=== PATIENT | female | born 1980 | race African-American/Black ===

== ENCOUNTER 2019-03-20 07:32 | Emergency (ER) | payer OTHER | END 2019-03-20 09:27 | disposition home or self-care (01) | LOC: JER 07:32 ==

== ENCOUNTER 2019-05-12 07:18 | Emergency (ER) | payer OTHER ==
[2019-05-12] MEDS ORDERED: KETOROLAC TROMETHAMINE 60 MG/2 ML VIAL IM ONE (07:29)
[2019-05-12 07:30] VITALS: BP 122/74; PULSE 71; TEMP 98.4; BMI 25.8
[2019-05-12] MEDS ORDERED: KETOROLAC TROMETHAMINE 60 MG/2 ML VIAL ONE (07:51)
--- NOTE | 2019-05-12 07:56 | PDOC ---
History of Present Illness - General Chief Complaint: Pain, Acute Stated Complaint: Pain Time Seen by Provider: 05/12/19 07:24 History Source: Patient Exam Limitations: No Limitations - History of Present Illness Initial Comments: 05/12/19 07:40 38 y/o female presents to ED with complaints of left arm pain upon awakening this morning with tingling to her fingers. Patient denies injury to area, swelling to the arm but states that have right neck pain approximate one week prior. Patient denies weakness, radiation to chest or back, difficulty breathing , or rash area. Timing/Duration: 4-6 hours Severity: moderate Modifying Factors: improves with: other Associated Symptoms: reports: denies symptoms Past History - Travel Close contact w/someone who was outside of country & ill: No - Past Medical History Allergies/Adverse Reactions: Allergies Allergy/AdvReac Type Severity Reaction Status Date / Time No Known Allergies Allergy Verified 05/12/19 07:30 Home Medications: Ambulatory Orders NK [No Known Home Medication] 05/12/19 COPD: No - Suicide/Smoking/Psychosocial Hx Smoking History: Never smoked Have you smoked in the past 12 months: No Hx Alcohol Use: No Drug/Substance Use Hx: No Substance Use Type: None Patient Lives Alone: No Lives with/in: spouse/SO Review of Systems - Review of Systems Able to Perform ROS?: Yes Constitutional: No: Symptoms Reported HEENTM: No: Symptoms Reported Respiratory: No: Symptoms reported Cardiac (ROS): No: Symptoms Reported ABD/GI: No: Symptoms Reported : No: Symptoms Reported Musculoskeletal: Yes: Muscle Pain Integumentary: No: Symptoms Reported Neurological: Yes: Tingling Endocrine: No: Symptoms Reported Hematologic/Lymphatic: No: Symptoms Reported *Physical Exam - Vital Signs Last Vital Signs Temp Pulse Resp BP Pulse Ox 98.4 F 71 16 122/74 100 05/12/19 07:28 05/12/19 07:28 05/12/19 07:28 05/12/19 07:28 05/12/19 07:28 - Physical Exam General Appearance: Yes: Nourished, Appropriately Dressed. No: Apparent Distress HEENT: positive: EOMI, CUAUHTEMOC, Pharynx Normal Neck: positive: Normal Thyroid Respiratory/Chest: positive: Lungs Clear, Normal Breath Sounds. negative: Respiratory Distress, Accessory Muscle Use Cardiovascular: positive: Regular Rhythm, Regular Rate. negative: Murmur Gastrointestinal/Abdominal: positive: Soft Extremity: positive: Normal Inspection, Normal Range of Motion, Tender. negative: Swelling Integumentary: positive: Normal Color, Warm, Moist Neurologic: positive: Motor Strength 5/5 (left hand grasp and shoulder grasp) Medical Decision Making - Medical Decision Making 05/12/19 08:01 Chief complaint: left arm aching with tingling to left 1-3rd digit intermittently since awakening this am Exam: vss, no reproducible pain Plan: Ekg and toradol *DC/Admit/Observation/Transfer Diagnosis at time of Disposition: Radicular pain in left arm - Discharge Dispostion Disposition: HOME Condition at time of disposition: Good - Referrals - Patient Instructions Printed Discharge Instructions: DI for Cervical Radiculopathy Additional Instructions: Please take Motrin 600 mg every 8 hours as recommended for the next 72 hours then as needed thereafter. May massage area and provide small range of motion exercises to alleviate inflammation. If symptoms do not improve over the next week consider follow up with her PCP and/or imaging. - Post Discharge Activity
--- NOTE | 2019-05-12 17:29 | EKG ---
Test Reason : Blood Pressure : / mmHG Vent. Rate : 074 BPM Atrial Rate : 074 BPM P-R Int : 218 ms QRS Dur : 090 ms QT Int : 396 ms P-R-T Axes : 073 073 034 degrees QTc Int : 439 ms SINUS RHYTHM WITH 1ST DEGREE A-V BLOCK POSSIBLE LEFT ATRIAL ENLARGEMENT NONSPECIFIC T WAVE ABNORMALITY ABNORMAL ECG NO PREVIOUS ECGS AVAILABLE Confirmed by TIANNA SOARES MD ([id number]) on 05/12/2019 5:28:48 PM Referred By: Confirmed By:TIANNA SOARES MD
== END 2019-05-12 08:18 | disposition home or self-care (01) ==
LOC: JER 07:18
PROC: 3E0233Z Introduction of Anti-inflammatory into Muscle, Percutaneous Approach (ICD-10-PCS; principal; 2019-05-12)
DX: M54.12 Radiculopathy, cervical region (principal)
CPT/HCPCS: 93005; 93010; 99282-25

== ENCOUNTER 2019-10-11 16:23 | Emergency (ER) | payer OTHER ==
[2019-10-11 17:05] VITALS: BMI 23.3
[2019-10-11] MEDS ORDERED: FAMOTIDINE 20 MG/50 ML IVPB 20 MG/50 ML MG IVPB ONE (18:41)
[2019-10-11] MEDS ORDERED: ONDANSETRON 4 MG/2 ML VIAL IVPUSH ONE (18:41)
[2019-10-11] MEDS ORDERED: SODIUM CHLORIDE 1,000 ML IV STA (18:41)
[2019-10-11] MEDS ORDERED: ONDANSETRON 4 MG/2 ML VIAL ONE (19:01)
--- NOTE | 2019-10-11 19:08 | PDOC ---
Documentation entered by Nicci Shelby SCRIBE, acting as scribe for Ramon Peters MD. Ramon Peters MD: This documentation has been prepared by the Afsaneh wolf Xhesika, SCRIBE, under my direction and personally reviewed by me in its entirety. I confirm that the documentation accurately reflects all work, treatment, procedures, and medical decision making performed by me. History of Present Illness - General Chief Complaint: Nausea/Vomiting Stated Complaint: DIZZY Time Seen by Provider: 10/11/19 17:48 History Source: Patient Exam Limitations: No Limitations - History of Present Illness Initial Comments: 10/11/19 18:47 The patient is a 30 year old female, , with no PMH who presents to the ED with nausea and vomiting since this morning. She reports her symptoms began 1 hour after taking a left over azithromycin pill for a runny nose and cough that started last night. She reports innumberable episodes of NBNB emesis and 4 episodes of non bloody diarrhea. She denies abdominal pain. Patient notes she had fried food, rice, ribs and [employer] yesterday. 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 Pt reports she smoked marijuana last week (one blunt). Patient notes her LMP was last week, denies any chance she is . The patient denies chest pain, shortness of breath, headache, dizziness, focal weakness/numbness. Denies fever, chills, cough, diarrhea and constipation. Denies dysuria, frequency, urgency and hematuria. Allergies: NKDA Past History - Past Medical History Allergies/Adverse Reactions: Allergies Allergy/AdvReac Type Severity Reaction Status Date / Time No Known Allergies Allergy Verified 10/11/19 17:03 Home Medications: Ambulatory Orders Ondansetron HCl [Zofran] 4 mg PO BID #10 tablet 10/11/19 COPD: No - Psycho Social/Smoking Cessation Hx Smoking History: Never smoked Have you smoked in the past 12 months: No Information on smoking cessation initiated: No Hx Alcohol Use: No Drug/Substance Use Hx: No Substance Use Type: None Review of Systems - Review of Systems Able to Perform ROS?: Yes Comments:: 10/11/19 18:48 GENERAL/CONSTITUTIONAL: No fever or chills. No weakness. HEAD, EYES, EARS, NOSE AND THROAT: No change in vision. No ear pain or discharge. No sore throat. CARDIOVASCULAR: No chest pain, no shortness of breath, no loss of consciousness RESPIRATORY: No cough, wheezing, or hemoptysis. GASTROINTESTINAL: + nausea, + vomiting. No diarrhea or constipation. GENITOURINARY: No dysuria, frequency, or change in urination. MUSCULOSKELETAL: No joint or muscle swelling or pain. No neck or back pain. SKIN: No rash NEUROLOGIC: No vertigo, no change in strength/sensation. ENDOCRINE: No increased thirst. No abnormal weight change. HEMATOLOGIC/LYMPHATIC: No anemia, easy bleeding, or history of blood clots. ALLERGIC/IMMUNOLOGIC: No hives or skin allergy. *Physical Exam - Vital Signs Last Vital Signs Temp Pulse Resp BP Pulse Ox 98 F 64 26 H 129/54 L 97 10/11/19 17:03 10/11/19 17:03 10/11/19 17:03 10/11/19 17:03 10/11/19 17:03 - Physical Exam 10/11/19 18:48 GENERAL: Awake, alert, and fully oriented, in no acute distress. EYES: PERRLA, EOMI, sclera anicteric, conjunctiva clear ENT: ANares patent, oropharynx clear without exudates. Moist mucosa NECK: Nontender, no stepoffs, Normal ROM, supple, no lymphadenopathy, JVD, or masses LUNGS: Breath sounds equal, clear to auscultation bilaterally. No wheezes, and no crackles HEART: Regular rate and rhythm, normal S1 and S2, no murmurs, rubs or gallops ABDOMEN: Soft, mild LUQ ttp, no other ttp in any other quadrants, normoactive bowel sounds. No guarding, no rebound. No masses EXTREMITIES: Normal range of motion, no edema. No clubbing or cyanosis. No cords, erythema, or tenderness NEUROLOGICAL: Cranial nerves II through XII intact. 5/5 strength and sensation in all extremities, Normal speech, normal gait, normal cerebellar function SKIN: Warm, Dry, normal turgor, no rashes or lesions noted. ED Treatment Course - LABORATORY CBC & Chemistry Diagram: 10/11/19 19:00 10/11/19 19:00 Medical Decision Making - Medical Decision Making 10/11/19 19:06 38-year-old female with no significant past medical history who presents to the emergency department with innumerable episodes of vomiting since this morning as well as diarrhea. Vitals on my evaluation within normal limits. With mild left upper quadrant tenderness palpation, but no other abdominal tenderness palpation. Most likely viral gastroenteritis, however will obtain labs to evaluate for pancreatitis as well will also obtain test Plan to treat symptoms with fluids and antiemetics. Case signed out to Dr. White for reassessment and further management. Discharge - Discharge Information Problems reviewed: Yes Clinical Impression/Diagnosis: Nausea & vomiting, Gastroenteritis Disposition: HOME - Additional Discharge Information Prescriptions: Ondansetron HCl [Zofran] 4 mg PO BID #10 tablet - Follow up/Referral - Patient Discharge Instructions Patient Printed Discharge Instructions: Viral Gastroenteritis - Post Discharge Activity
[2019-10-11 19:22] LABS: BASO % 0.6 % (0-2.0); EOS % 0.1 % (0-4.5); HEMATOCRIT 37.9 % (32.4-45.2); HEMOGLOBIN 12.6 GM/dL (10.7-15.3); LYMPH % 16.3 % (8-40); MCH 30.8 pg (25.7-33.7); MCHC 33.1 g/dl (32.0-36.0); MEAN CELL VOLUME 92.8 fl (80-96); MEAN PLT VOLUME 9.8 fl (7.5-11.1); MONO % 4.5 % (3.8-10.2); NEUT % 78.5 % (42.8-82.8); PLATELET COUNT 201 K/MM3 (134-434); RBC 4.08 M/mm3 (3.60-5.2); RDW 14.5 % (11.6-15.6); WHITE BLOOD COUNT 6.1 K/mm3 (4.0-10.0)
[2019-10-11] MEDS ORDERED: SODIUM CHLORIDE 0.9% 500 ML INFUS.BAG IV ONE (19:25)
[2019-10-11 19:42] LABS: ALBUMIN 4.4 g/dl (3.4-5.0); BILIRUBIN,TOTAL 0.6 mg/dL (0.2-1); BLOOD UREA NITROGEN 7.9 mg/dL (7-18); CALCIUM 9.6 mg/dL (8.5-10.1); CREATININE 0.9 mg/dL (0.55-1.3); MAGNESIUM 1.8 mg/dL (1.8-2.4); POTASSIUM 3.8 mmol/L (3.5-5.1); TOT PROT 8.2 g/dl (6.4-8.2)
--- NOTE | 2019-10-11 19:43 | PDOC ---
Attending Attestation - Resident Resident Name: Jennifer Grove - ED Attending Attestation I have performed the following: I have examined & evaluated the patient, The case was reviewed & discussed with the resident, I agree w/resident's findings & plan
--- NOTE | 2019-10-11 19:44 | PDOC ---
*Physical Exam - Vital Signs Last Vital Signs Temp Pulse Resp BP Pulse Ox 98 F 64 26 H 129/54 L 97 10/11/19 17:03 10/11/19 17:03 10/11/19 17:03 10/11/19 17:03 10/11/19 17:03 ED Treatment Course - LABORATORY CBC & Chemistry Diagram: 10/11/19 19:00 10/11/19 19:00 - ADDITIONAL ORDERS Additional order review: Laboratory Results 10/11/19 10/11/19 19:00 19:00 Sodium 137 Potassium 3.8 Chloride 108 H Carbon Dioxide 18 L Anion Gap 12 BUN 7.9 Creatinine 0.9 Est GFR (CKD-EPI)AfAm 94.01 Est GFR (CKD-EPI)NonAf 81.11 Random Glucose 135 H Calcium 9.6 Magnesium 1.8 Total Bilirubin 0.6 AST 19 ALT 20 Alkaline Phosphatase 73 Total Protein 8.2 Albumin 4.4 Lipase 62 L 10/11/19 19:00 RBC 4.08 MCV 92.8 MCHC 33.1 RDW 14.5 MPV 9.8 Neutrophils % 78.5 D Lymphocytes % 16.3 D Monocytes % 4.5 Eosinophils % 0.1 D Basophils % 0.6 - Medications Given in the ED: ED Medications Discontinued Medications Generic Name Dose Route Start Last Admin Trade Name Freq PRN Reason Stop Dose Admin Famotidine/Sodium Chloride 20 mg in 50 mls @ 100 mls/hr 10/11/19 18:41 19:22 Pepcid 20 Mg Premixed Ivpb - IVPB 10/11/19 19:10 100 mls/hr ONCE ONE Administration Sodium Chloride 1,000 mls @ 1,000 mls/hr 10/11/19 18:41 10/11/19 19:07 Normal Saline - IV 10/11/19 19:40 1,000 mls/hr ASDIR STA Administration Ondansetron HCl 4 mg 10/11/19 18:41 10/11/19 19:07 Zofran Injection IVPUSH 10/11/19 18:42 4 mg ONCE ONE Administration Medical Decision Making - Medical Decision Making 10/11/19 20:02 Pt just vomited and she has RUQ pain; bilious vomit and although she has normal WBC and normal LFTs, I will get a sono of her RUQ. She will get another L saline and morphine 2mg 12/21/19 21:21 Pt received morphine as well as NSS We are awaiting her RUQ sono 10/11/19 21:32 Patient Name: HERMELINDA HUFF THIS IS A PRELIMINARY REPORT FROM [facility] DATE OF SERVICE: 2019-10-11 20:21:53 IMAGES: 59 EXAM: Right upper quadrant ultrasound History: 38-year-old female, evaluate for cholecystitis Comparison: No comparison exam is available. Technique: Multiple transverse and longitudinal images of the right upper quadrant, IVC are obtained. Findings: Liver: Homogeneous echotexture. No biliary ductal dilatation. Normal directional hepatic flow. Gallbladder: No stones. No sludging. No wall thickening. No pericholecystic fluid. No sonographic Augustine sign. Extra hepatic bile duct caliber: Within normal limits measuring 4 mm. Pancreatic head and body: Not well evaluated on ultrasound. Right kidney: No hydronephrosis. Fluid: None. IVC: Visualized portions unremarkable. IMPRESSION: Unremarkable right upper quadrant ultrasound 10/11/19 21:39 Pt is feeling better and she is ready to go home. Discharge - Discharge Information Problems reviewed: Yes Clinical Impression/Diagnosis: Nausea & vomiting, Gastroenteritis Disposition: HOME - Admission No - Follow up/Referral - Patient Discharge Instructions Patient Printed Discharge Instructions: Viral Gastroenteritis - Post Discharge Activity
[2019-10-11] MEDS ORDERED: morphine CARPU-JECT 2 MG/1 ML DISP.SYRIN IVPUSH ONE (19:52)
[2019-10-11] MEDS ORDERED: MORPHINE SULFATE 2 MG/ML VIAL ONE (20:01)
[2019-10-11 22:10] VITALS: BP 127/74; PULSE 57; TEMP 98.9
== END 2019-10-11 22:08 | disposition home or self-care (01) ==
LOC: JER 16:23
PROC: 3E033GC Introduction of Other Therapeutic Substance into Peripheral Vein, Percutaneous Approach (ICD-10-PCS; principal; 2019-10-11)
PROC: 3E033GC Introduction of Other Therapeutic Substance into Peripheral Vein, Percutaneous Approach (ICD-10-PCS; 2019-10-11)
PROC: 3E033NZ Introduction of Analgesics, Hypnotics, Sedatives into Peripheral Vein, Percutaneous Approach (ICD-10-PCS; 2019-10-11)
DX: K52.9 Noninfective gastroenteritis and colitis, unspecified (principal)
CPT/HCPCS: 36415; 76705-TC; 80053; 83690; 83735; 84703; 85025; 99282-25; J7030

== ENCOUNTER 2019-11-05 02:03 | Emergency (ER) | payer OTHER ==
[2019-11-05 02:35] VITALS: BP 111/68; PULSE 66; TEMP 98; BMI 22.4
--- NOTE | 2019-11-05 04:00 | PDOC ---
Attending Attestation - Resident Resident Name: EribertoChristie - ED Attending Attestation I have performed the following: I have examined & evaluated the patient, The case was reviewed & discussed with the resident, I agree w/resident's findings & plan - HPI HPI: 11/05/19 04:54 see resident hpi - Physicial Exam PE: 11/05/19 04:54 agree with resident exam - Medical Decision Making 11/05/19 04:39-year-old female with bilateral upper back pain as well as pain to both upper extremities Patient given steroids and Toradol in the emergency department Patient advised to stay for imaging, specifically an MRI of the cervical and thoracic spine which she is refusing She will be leaving AMA, patient will be given orthopedic follow-up
[2019-11-05] MEDS ORDERED: predniSONE 20 MG TABLET (UD) PO ONE (04:25)
[2019-11-05] MEDS ORDERED: KETOROLAC TROMETHAMINE 60 MG/2 ML VIAL IM ONE (04:25)
--- NOTE | 2019-11-05 04:25 | PDOC ---
History of Present Illness - General Chief Complaint: Back Pain Stated Complaint: PAIN, NECK/ RT SHOULDER Time Seen by Provider: 11/05/19 03:59 - History of Present Illness Initial Comments: Lucio Stout is a 39yo woman with no medical history who presents reporting right shoulder pain with shooting pain from her hands up her arms bilaterally. She first noticed the shoulder/neck pain on Sunday morning, and the pain was initially bilateral. Throughout the day it localized to the right shoulder. She reports increased pain with extension of her arm at the shoulder. Yesterday, she also noticed that she had severe pain that shoots up both arms whenever she puts pressure on her fingertips or palms. She denies any weakness, numbness, or tingling in her arms or hands. She denies ever having any similar symptoms previously (though per chart review was seen for LUE pain w/ finger tingling in fall). She is not aware of any trauma, unusual lifting, or other injury prior to the pain starting. Past History - Past Medical History Allergies/Adverse Reactions: Allergies Allergy/AdvReac Type Severity Reaction Status Date / Time No Known Allergies Allergy Verified 11/05/19 02:33 Home Medications: Ambulatory Orders Ondansetron HCl [Zofran] 4 mg PO BID #10 tablet 10/11/19 Ibuprofen 600 mg PO Q8H PRN #30 tablet 11/05/19 Lidocaine 5% Patch [Lidoderm -] 1 patch TP DAILY PRN #7 patch 11/05/19 Prednisone [Prednisone 50 MG TABLETS] 50 mg PO DAILY #5 tablet 11/05/19 COPD: No - Psycho Social/Smoking Cessation Hx Smoking History: Never smoked Have you smoked in the past 12 months: No Information on smoking cessation initiated: No Hx Alcohol Use: Yes Drug/Substance Use Hx: No Substance Use Type: None Review of Systems - Review of Systems Comments:: General: No fevers, no chills, no weight or appetite change, no malaise HEENT: No changes in vision, no changes in hearing, no congestion, no sore throat CV: No chest pain, no palpitations, no LE edema Pulm: No SOB, no cough, no wheezing GI: No nausea or vomiting, no change in bowel habits, no melena : No frequency, no urgency, no dysuria Musc: See HPI Skin: No rash, no lesions, no erythema Endo: No excessive thirst, no heat/cold intolerance Heme: No unusual bruising or bleeding, no swollen glands Neuro: No syncope, no numbness/tingling, no focal weakness Vasc: No claudication Psych: No recent change in mood, no SI or HI *Physical Exam - Vital Signs Last Vital Signs Temp Pulse Resp BP Pulse Ox 98 F 66 17 111/68 100 11/05/19 02:28 11/05/19 02:28 11/05/19 02:28 11/05/19 02:28 11/05/19 02:28 - Physical Exam General: Comfortable, no acute distress HEENT: PERRL, EOMI, MMM, voice normal, normal neck ROM, no LAD Cards: RRR, no murmur appreciated Pulm: Comfortable on room air, clear to auscultation bilaterally Abd: Soft, nontender, nondistended Ext: Atraumatic. No LE edema. ROM intact. Strength 5/5 and equal bilaterally. TTP over superior lateral right shoulder; reproducible RUE pain with arm extension. Tenderness to palpation over both palms. BUE neurovascularly intact; palable radial pulses and able to make thumbs up, OK sign, cross fingers. Negative tinel's sign Skin: Normal color, no rashes or lesions Neuro: A&Ox3, CN grossly intact, normal speech, motor/sensory grossly intact and symmetric Psych: Mood appropriate to situation Medical Decision Making - Medical Decision Making 11/05/19 04:25 Lucio Stout is a 39yo woman with no medical history who presents reporting right shoulder pain that worsens with movement as well as b/l pain shooting up her arms with touch to her b/l palms and fingers. She denies any trauma, heavy lifting, or other injury or strain. - Shoulder pain that worsens with palpation and arm movement most likely musculoskeletal. Pain shooting up her arms unclear, possibly carpal tunnel but no preproducible symptoms appreciated on exam - Toradol, prednisone, lidocaine patch for symptoms 11/05/19 05:22 - Feels significantly improved, now able to move RUE in full ROM at shoulder - Continued shooting pain up b/l arms - Pt declines to stay in the ED for MRI and additional evaluation. Will leave AMA Discussed with Dr Mickey Wei PGY2 Discharge - Discharge Information Problems reviewed: Yes Clinical Impression/Diagnosis: Shooting pain Right shoulder pain Qualifiers: Chronicity: acute Qualified Code(s): M25.511 - Pain in right shoulder Condition: Stable Disposition: AGAINST MEDICAL ADVICE - Admission No - Additional Discharge Information Prescriptions: Ibuprofen 600 mg PO Q8H PRN #30 tablet PRN Reason: Pain Lidocaine 5% Patch [Lidoderm -] 1 patch TP DAILY PRN #7 patch PRN Reason: Pain Prednisone [Prednisone 50 MG TABLETS] 50 mg PO DAILY #5 tablet - Follow up/Referral Referrals: Christ Prado MD [Staff Physician] - David Charles DO [Staff Physician] - - Patient Discharge Instructions Patient Printed Discharge Instructions: DI for Carpal Tunnel Syndrome, DI for Shoulder Pain Additional Instructions: Discharge Instructions: You were seen in the emergency department for shoulder and arm pain. Your symptoms improved with medications, but you declined to stay for an MRI to make sure there is no nerve injury. Home Care and Follow Up: - You have been prescribed an anti-inflammatory medication called prednisone. This should be taken once daily for 5 days - You have been prescribed a pain medication, iburpofen, that may be taken every 6-8 hours as needed for pain - You may also use [id number] acetaminophen (Tylenol) every 6-8 hours if needed for continued pain. - It is strongly recommended that you take ibuprofen with food to help prevent stomach irritation. - You may buy a numbing patch that contains lidocaine (the patch is 4% lidocaine ) that can be placed over the areas of greatest pain. The lidocaine patch may be placed for 12 hours then removed for 12 hours. - Try using an ice pack for 20 minutes every hour or a heating pad for additional pain control. These should NOT be used over the lidocaine patch, but you may place them over the areas of pain while the patch is off. - Do not stop moving around. As much as you can tolerate, continue to do light exercise and stretching exercises. Increase your activity level as much as you can tolerate daily. - If your pain does not improve over the next week, you have been referred to orthopedics for follow up. - Seek immediate medical care if you have significant worsening of your symptoms , you are unable to move your shoulder, you have severe pain not controlled by medications, or you have any other medical emergency. - Post Discharge Activity
[2019-11-05] MEDS ORDERED: LIDOCAINE 5% TOPICAL PATCH TP ONE (04:30)
[2019-11-05] MEDS ORDERED: predniSONE 20 MG TABLET (UD) ONE (04:38)
[2019-11-05] MEDS ORDERED: LIDOCAINE 5% TOPICAL PATCH ONE (04:38)
[2019-11-05] MEDS ORDERED: KETOROLAC TROMETHAMINE 60 MG/2 ML VIAL ONE (04:38)
== END 2019-11-05 05:47 | disposition left against medical advice (07) ==
LOC: JER 02:03
PROC: 3E0233Z Introduction of Anti-inflammatory into Muscle, Percutaneous Approach (ICD-10-PCS; principal; 2019-11-05)
DX: M25.511 Pain in right shoulder (principal)
CPT/HCPCS: 99282-25

== ENCOUNTER 2021-03-10 20:51 | Emergency (ER) | payer OTHER ==
[2021-03-10 21:09] VITALS: BP 137/75; PULSE 54; TEMP 98.5; BMI 21.6
[2021-03-10] MEDS ORDERED: LACTATED RINGERS SOLUTION 1000 ML INFUS.BAG IV ONE (22:10)
[2021-03-10] MEDS ORDERED: ACETAMINOPHEN 1000 MG/100 ML VIAL (NON FORMULARY) IVPB ONE (22:10)
[2021-03-10] MEDS ORDERED: FAMOTIDINE 20 MG/50 ML IVPB 20 MG/50 ML MG IVPB ONE ×2 (22:10→22:34)
[2021-03-10] MEDS ORDERED: ONDANSETRON 4 MG/2 ML VIAL IVPUSH ONE (22:10)
[2021-03-10] MEDS ORDERED: ACETAMINOPHEN INJECTION 100 ML IVPB ONE (22:33)
[2021-03-10] MEDS ORDERED: ONDANSETRON 4 MG/2 ML VIAL ONE (22:33)
[2021-03-10] MEDS ORDERED: LACTATED RINGERS SOLUTION 1,000 ML/1,000 ML INFUS.BAG IV STA (22:36)
[2021-03-10 23:46] LABS: BASO % 0.4 % (0-2.0); HEMATOCRIT 39.5 % (32.4-45.2); HEMOGLOBIN 12.9 GM/dL (10.7-15.3); LYMPH % 12.9 % (8-40); MCH 31.4 pg (25.7-33.7); MCHC 32.7 g/dl (32.0-36.0); MEAN PLT VOLUME 9.3 fl (7.5-11.1); MONO % 4.5 % (3.8-10.2); NEUT % 82.2 % (42.8-82.8); PLATELET COUNT 190 K/MM3 (134-434); RBC 4.11 M/mm3 (3.60-5.2); RDW 15.1 % (11.6-15.6); WHITE BLOOD COUNT 6.3 K/mm3 (4.0-10.0)
[2021-03-10] MEDS ORDERED: MAG HYDROX/AL HYDROX/SIMETH 30 ML UNIT-DOSE CUP PO ONE (23:59)
[2021-03-11] MEDS ORDERED: LIDOCAINE VISCOUS 2% ORAL/TOP 20 ML UNIT-DOSE CUP MM ONE ×2 (00:01→04:43)
[2021-03-11] MEDS ORDERED: LIDOCAINE VISCOUS 2% ORAL/TOP 20 ML UNIT-DOSE CUP ONE ×3 (00:03→04:53)
[2021-03-11] MEDS ORDERED: MAG HYDROX/AL HYDROX/SIMETH 30 ML UNIT-DOSE CUP ONE ×4 (00:04→04:53)
[2021-03-11 00:13] LABS: CHLORIDE 105 mmol/L (98-107); SODIUM 138 mmol/L (136-145)
[2021-03-11 00:15] LABS: CALCIUM 9.1 mg/dL (8.5-10.1)
[2021-03-11 00:16] LABS: ALBUMIN 4.3 g/dl (3.4-5.0); ANION GAP 13 MMOL/L (8-16); BLOOD UREA NITROGEN 7.6 mg/dL (7-18); CO2 20 mmol/L (21-32); GLUCOSE,RANDOM 144 mg/dL (74-106); LIPASE 40 U/L (73-393)
[2021-03-11] MEDS ORDERED: METOCLOPRAMIDE HCL INJECTION 10 MG/2 ML VIAL IVPB ONE (00:16)
[2021-03-11] MEDS ORDERED: METOCLOPRAMIDE HCL INJECTION 10 MG/2 ML VIAL ONE (00:17)
[2021-03-11 00:18] LABS: SGOT/AST 16 U/L (15-37); SGPT/ALT 16 U/L (13-61)
[2021-03-11 00:19] LABS: CREATININE 0.9 mg/dL (0.55-1.3)
[2021-03-11 00:20] LABS: BILIRUBIN,TOTAL 1.2 mg/dL (0.2-1); TOT PROT 7.7 g/dl (6.4-8.2)
[2021-03-11 00:21] LABS: ALK PHOS 55 U/L (45-117)
[2021-03-11 03:09] LABS: EPI CELLS >36 /uL (0-25.1); HYALINE CASTS 8 /uL (0-3.1); PH,URINE 7.5 (5.0-8.0); URINE APPEARANCE CLEAR; URINE BACTERIA 589 /uL (0-1359); URINE BILIRUBIN NEGATIVE (NEGATIVE); URINE COLOR YELLOW; URINE GLUCOSE (UA) NEGATIVE (NEGATIVE); URINE KETONE 3+ (NEGATIVE); URINE LEUK ESTERASE NEGATIVE (NEGATIVE); URINE NITRITE NEGATIVE (NEGATIVE); URINE PROTEIN 1+ (NEGATIVE); URINE RBC 93 /uL (0-23.9); URINE UROBILINOGEN 0.2 mg/dL (0.2-1.0); URINE WBC 9 /uL (0-25.8)
[2021-03-11] MEDS ORDERED: FAMOTIDINE 20 MG/50 ML IVPB 20 MG/50 ML MG IVPB ONE ×2 (04:42→05:37)
[2021-03-11] MEDS ORDERED: ACETAMINOPHEN 1000 MG/100 ML VIAL (NON FORMULARY) IVPB ONE (04:42)
[2021-03-11] MEDS ORDERED: MAG HYDROX/AL HYDROX/SIMETH 30 ML UNIT-DOSE CUP PO ONE (04:43)
[2021-03-11] MEDS ORDERED: HALOPERIDOL LACTATE 5 MG/ML IM ONE (04:45)
[2021-03-11] MEDS ORDERED: ACETAMINOPHEN INJECTION 100 ML IVPB ONE (04:53)
[2021-03-11] MEDS ORDERED: HALOPERIDOL LACTATE 5 MG/ML ONE (04:53)
== END 2021-03-11 06:08 | disposition home or self-care (01) ==
LOC: JER 20:51
PROC: 3E033NZ Introduction of Analgesics, Hypnotics, Sedatives into Peripheral Vein, Percutaneous Approach (ICD-10-PCS; principal; 2021-03-10)
PROC: 3E033GC Introduction of Other Therapeutic Substance into Peripheral Vein, Percutaneous Approach (ICD-10-PCS; 2021-03-10)
PROC: 3E0337Z Introduction of Electrolytic and Water Balance Substance into Peripheral Vein, Percutaneous Approach (ICD-10-PCS; 2021-03-10)
DX: R10.13 Epigastric pain (principal); R11.2 Nausea with vomiting, unspecified
CPT/HCPCS: 36415; 71045-TC-FY; 76705-TC; 80053; 81003; 83690; 84484; 84703; 85025; 87086; 93005; 93010; 99285-25; J0131

== ENCOUNTER 2024-05-02 05:29 | Emergency (ER) | payer OTHER ==
[2024-05-02 05:39] VITALS: BMI 22.6
[2024-05-02] MEDS ORDERED: MAG HYDROX/AL HYDROX/SIMETH 30 ML UNIT-DOSE CUP ONE (05:52)
[2024-05-02] MEDS ORDERED: ONDANSETRON 4 MG/2 ML VIAL ONE ×2 (05:52→07:56)
[2024-05-02] MEDS ORDERED: ACETAMINOPHEN INJECTION 100 ML IVPB ONE (05:52)
[2024-05-02] MEDS ORDERED: FAMOTIDINE 20 MG/50 ML IVPB 20 MG/50 ML MG IVPB ONE (05:52)
[2024-05-02] MEDS: SODIUM CHLORIDE 1,000 ML IV STA (06:14)
[2024-05-02] MEDS: ACETAMINOPHEN 1000 MG/100 ML BAG IVPB ONE (06:14)
[2024-05-02] MEDS: MAG HYDROX/AL HYDROX/SIMETH 30 ML UNIT-DOSE CUP PO ONE (06:14)
[2024-05-02] MEDS: ONDANSETRON 4 MG/2 ML VIAL IVPUSH ONE ×2 (06:15→08:02)
[2024-05-02] MEDS: FAMOTIDINE 20 MG/50 ML IVPB 20 MG/50 ML MG IVPB ONE (06:15)
[2024-05-02 06:25] LABS: BASO % 0.3 % (0-2.0); HEMOGLOBIN 12.6 GM/dL (10.7-15.3); MCH 32.3 pg (25.7-33.7); MCHC 33.3 g/dl (32.0-36.0); MEAN CELL VOLUME 97.1 fl (80-96); MEAN PLT VOLUME 9.3 fl (7.5-11.1); MONO % 3.1 % (3.8-10.2); NEUT % 85.6 % (42.8-82.8); PLATELET COUNT 179 10^3/uL (134-434); RBC 3.91 M/mm3 (3.60-5.2); RDW 13.7 % (11.6-15.6)
[2024-05-02 06:59] LABS: POTASSIUM 3.2 mmol/L (3.5-5.1)
[2024-05-02 07:01] LABS: ALBUMIN 4.6 g/dl (3.4-5.0); BLOOD UREA NITROGEN 5.7 mg/dL (7-18); CALCIUM 9.8 mg/dL (8.5-10.1); MAGNESIUM 1.7 mg/dL (1.8-2.4)
[2024-05-02 07:03] LABS: CREATININE 0.9 mg/dL (0.55-1.3)
[2024-05-02 07:06] LABS: BILIRUBIN,TOTAL 1.5 mg/dL (0.2-1); TOT PROT 8.4 g/dl (6.4-8.2)
[2024-05-02] MEDS ORDERED: POTASSIUM CHLORIDE ORAL LIQUID 20 MEQ/15 ML ONE (07:42)
[2024-05-02] MEDS ORDERED: MAGNESIUM SULFATE IN WATER 2 GM/50 ML IVPB IVPB ONE (07:42)
[2024-05-02] MEDS ORDERED: LIDOCAINE 4% PATCH TP ONE (07:42)
[2024-05-02] MEDS: LIDOCAINE 4% PATCH TP ONE (07:48)
[2024-05-02] MEDS: MAGNESIUM SULFATE IN WATER 2 GM/50 ML IVPB IVPB ONE (07:48)
[2024-05-02] MEDS: POTASSIUM CHLORIDE ORAL LIQUID 20 MEQ/15 ML PO ONE (08:06)
[2024-05-02] MEDS ORDERED: KCL 20 MEQ PREMIX BAG 20 MEQ/100 ML INFUS.BAG IVPB SCH (08:15)
[2024-05-02] MEDS: KCL 10 MEQ IVPB 10 MEQ/100 ML INFUS.BAG IVPB SCH (08:22)
[2024-05-02] MEDS ORDERED: HALOPERIDOL LACTATE 5 MG/ML ONE (08:31)
[2024-05-02] MEDS: HALOPERIDOL LACTATE 5 MG/ML IM ONE (08:34)
[2024-05-02 10:57] VITALS: BP 109/68; PULSE 72; RESP 18; TEMP 98.7
[2024-05-02] MEDS ORDERED: LIDOCAINE PATCH REMOVAL MC ONE (22:00)
== END 2024-05-02 11:14 | disposition home or self-care (01) ==
LOC: JER 05:29
PROC: 3E033GC Introduction of Other Therapeutic Substance into Peripheral Vein, Percutaneous Approach (ICD-10-PCS; principal; 2024-05-02)
PROC: 3E033NZ Introduction of Analgesics, Hypnotics, Sedatives into Peripheral Vein, Percutaneous Approach (ICD-10-PCS; 2024-05-02)
PROC: 3E033GC Introduction of Other Therapeutic Substance into Peripheral Vein, Percutaneous Approach (ICD-10-PCS; 2024-05-02)
PROC: 3E033GC Introduction of Other Therapeutic Substance into Peripheral Vein, Percutaneous Approach (ICD-10-PCS; 2024-05-02)
PROC: 3E033GC Introduction of Other Therapeutic Substance into Peripheral Vein, Percutaneous Approach (ICD-10-PCS; 2024-05-02)
PROC: 3E023GC Introduction of Other Therapeutic Substance into Muscle, Percutaneous Approach (ICD-10-PCS; 2024-05-02)
DX: R11.2 Nausea with vomiting, unspecified (principal); R10.13 Epigastric pain
CPT/HCPCS: 36415; 74177-TC; 80053; 83690; 83735; 84703; 85025; 99285-25; J0131; Q9967

== ENCOUNTER 2024-05-03 20:34 | Emergency (ER) | payer OTHER ==
[2024-05-03 20:38] VITALS: BMI 22.4
[2024-05-03] MEDS ORDERED: ACETAMINOPHEN INJECTION 100 ML IVPB ONE (21:55)
[2024-05-03] MEDS ORDERED: ONDANSETRON 4 MG/2 ML VIAL ONE (21:56)
[2024-05-03] MEDS: ACETAMINOPHEN 1000 MG/100 ML BAG IVPB ONE (22:10)
[2024-05-03] MEDS: SODIUM CHLORIDE 1,000 ML IV STA (22:10)
[2024-05-03] MEDS: ONDANSETRON 4 MG/2 ML VIAL IVPB ONE (22:11)
[2024-05-04] MEDS ORDERED: KETOROLAC TROMETHAMINE 15 MG/ML VIAL ONE (00:04)
[2024-05-04] MEDS: KETOROLAC TROMETHAMINE 15 MG/ML VIAL IVPUSH ONE (00:09)
[2024-05-04] MEDS: PYRIDOXINE HCL (B-6) 100 MG TABLET PO ONE (00:30)
[2024-05-04] MEDS ORDERED: METOCLOPRAMIDE HCL INJECTION 10 MG/2 ML VIAL ONE (00:34)
[2024-05-04] MEDS ORDERED: MAG HYDROX/AL HYDROX/SIMETH 30 ML UNIT-DOSE CUP ONE (00:34)
[2024-05-04] MEDS ORDERED: SUCRALFATE 1 GM TABLET (FP) ONE (00:34)
[2024-05-04] MEDS ORDERED: FAMOTIDINE 20 MG/50 ML IVPB 20 MG/50 ML MG IVPB ONE (00:34)
[2024-05-04] MEDS: MAG HYDROX/AL HYDROX/SIMETH -MYLANTA- ORAL SUSPENSION PO ONE (00:44)
[2024-05-04] MEDS: FAMOTIDINE 20 MG/50 ML IVPB 20 MG in PREMIX 50 IVPB ONE (00:49)
[2024-05-04] MEDS: METOCLOPRAMIDE HCL INJECTION 10 MG/2 ML VIAL IVPB ONE (00:49)
[2024-05-04] MEDS: SUCRALFATE 1 GM TABLET (FP) PO ONE (01:05)
[2024-05-04 01:14] LABS: BASO % 0.2 % (0-2.0); HEMATOCRIT 38.1 % (32.4-45.2); HEMOGLOBIN 12.9 GM/dL (10.7-15.3); LYMPH % 15.3 % (8-40); MCH 32.2 pg (25.7-33.7); MEAN CELL VOLUME 94.7 fl (80-96); MONO % 7.5 % (3.8-10.2); PLATELET COUNT 183 10^3/uL (134-434); RBC 4.02 M/mm3 (3.60-5.2); RDW 13.9 % (11.6-15.6); WHITE BLOOD COUNT 5.2 K/mm3 (4.0-10.0)
[2024-05-04 01:41] LABS: POTASSIUM 3.5 mmol/L (3.5-5.1)
[2024-05-04 01:43] LABS: EPI CELLS >36 /uL (0-25.1); HYALINE CASTS 0 /uL (0-3.1); URINE APPEARANCE CLEAR; URINE BACTERIA 470 /uL (0-1359); URINE BILIRUBIN NEGATIVE (NEGATIVE); URINE COLOR YELLOW; URINE GLUCOSE (UA) NEGATIVE (NEGATIVE); URINE KETONE 4+ (NEGATIVE); URINE LEUK ESTERASE NEGATIVE (NEGATIVE); URINE NITRITE NEGATIVE (NEGATIVE); URINE PROTEIN NEGATIVE (NEGATIVE); URINE RBC 9 /uL (0-23.9); URINE UROBILINOGEN 0.2 mg/dL (0.2-1.0); URINE WBC 27 /uL (0-25.8)
[2024-05-04 01:43] LABS: CALCIUM 8.7 mg/dL (8.5-10.1)
[2024-05-04 01:44] LABS: ALBUMIN 4.2 g/dl (3.4-5.0)
[2024-05-04 01:46] LABS: CREATININE 0.7 mg/dL (0.55-1.3)
[2024-05-04 01:48] LABS: TOT PROT 7.6 g/dl (6.4-8.2)
[2024-05-04 09:26] VITALS: BP 120/69; PULSE 63; RESP 20; TEMP 98
[2024-05-04] MEDS: CIPROFLOXACIN 500 MG TABLET (RESTRICTED TO ID) PO ONE (09:52)
== END 2024-05-04 09:54 | disposition home or self-care (01) ==
LOC: JER 20:34
PROC: 3E033NZ Introduction of Analgesics, Hypnotics, Sedatives into Peripheral Vein, Percutaneous Approach (ICD-10-PCS; 2024-05-03)
PROC: 3E033GC Introduction of Other Therapeutic Substance into Peripheral Vein, Percutaneous Approach (ICD-10-PCS; 2024-05-03)
PROC: 3E033GC Introduction of Other Therapeutic Substance into Peripheral Vein, Percutaneous Approach (ICD-10-PCS; 2024-05-03)
PROC: 3E0337Z Introduction of Electrolytic and Water Balance Substance into Peripheral Vein, Percutaneous Approach (ICD-10-PCS; 2024-05-03)
PROC: 3E033GC Introduction of Other Therapeutic Substance into Peripheral Vein, Percutaneous Approach (ICD-10-PCS; principal; 2024-05-04)
PROC: 3E0333Z Introduction of Anti-inflammatory into Peripheral Vein, Percutaneous Approach (ICD-10-PCS; 2024-05-04)
PROC: 3E033GC Introduction of Other Therapeutic Substance into Peripheral Vein, Percutaneous Approach (ICD-10-PCS; 2024-05-04)
DX: R10.84 Generalized abdominal pain (principal); R11.2 Nausea with vomiting, unspecified
CPT/HCPCS: 36415; 74177-TC; 80053; 81003; 83690; 84703; 85025; 99285-25; J0131; Q9967